=== PATIENT | female | born 1950 | race Caucasian/White ===

== ENCOUNTER 2022-12-26 14:16 | Observation (INO) | payer BC, OTHER ==
[~2022-12-26] VITALS: Ht 165.1 cm; Wt 60.4 kg
[2022-12-26 14:16] VITALS: BP 130/64; TEMP 99
[2022-12-26 14:52] LABS: PLATELET COUNT 228 K/uL (152-353)
[2022-12-26 15:01] LABS: POTASSIUM 4.3 mmol/L (3.6-5.2)
[2022-12-26 18:13] VITALS: BP 173/79; TEMP 98.4; Ht 165.1 cm; Wt 60.4 kg
[2022-12-26] MEDS ORDERED: CLOPIDOGREL75 MG PO (19:08)
[2022-12-26] MEDS ORDERED: EUTHYROX50 MCG PO (19:09)
[2022-12-26] MEDS ORDERED: HYZAAR1 TA1 PO (19:09)
[2022-12-26] MEDS ORDERED: LIPITOR20 MG PO (19:10)
[2022-12-26] MEDS ORDERED: HYDROXYCHLOR200 MG PO ×2 (19:11→19:13)
[2022-12-26] MEDS ORDERED: PREGABALIN75 MG PO (19:14)
[2022-12-26 20:00] VITALS: BP 133/67; TEMP 98.3
[2022-12-27] VITALS: BP 137/68; TEMP 98.3
[2022-12-27 04:00] VITALS: BP 131/31; TEMP 98.7
[2022-12-27 04:47] LABS: POTASSIUM 3.6 mmol/L (3.6-5.2)
[2022-12-27 04:55] LABS: PLATELET COUNT 180 K/uL (152-353)
[2022-12-27 08:00] VITALS: BP 128/68; TEMP 98.7
[2022-12-27 12:00] VITALS: BP 155/73; TEMP 97.4
[2022-12-27] MEDS ORDERED: LOSA50TA PO (14:30)
== END 2022-12-27 16:23 | disposition home or self-care (01) ==
LOC: ED 14:16 → MED/SURG 16:32
PROVIDERS: Family Medicine; ADMIT Nurse Practitioner Family; ATTEND Internal Medicine Endocrinology, Diabetes & Metabolism
DX: N17.8 Other acute kidney failure (principal); I73.9 Peripheral vascular disease, unspecified; I25.10 Atherosclerotic heart disease of native coronary artery without angina pectoris; R42 Dizziness and giddiness; E03.8 Other specified hypothyroidism; I10 Essential (primary) hypertension; L93.2 Other local lupus erythematosus; E78.49 Other hyperlipidemia; D64.89 Other specified anemias
CPT/HCPCS: 36415; 80048; 80053; 81002; 84439; 84443; 84484; 85027; 93005; 96360; 96361; 96372; 99221; 99284; G0378; J1650